=== PATIENT | male | born 1940 | race Caucasian/White ===

== ENCOUNTER → 2017-10-31 13:20 | Outpatient (CLI) | payer MEDICARE, SELFPAY ==
--- NOTE | 2017-10-31 13:23 | DI.REPORT_ITS ---
SYMPTOMS/DIAGNOSIS: FEVER, R50.9; EXERTIONAL SHORTNESS OF BREATH, R06.09 CHEST X-RAY, PA AND LATERAL: Comparison is 10/16/17. The heart size and pulmonary vasculature are stable and within normal limits. There is unchanged scarring in the left lung base. No pulmonary infiltrates, effusions or pneumothoraces are identified. Mild degenerative changes are seen in the spine. IMPRESSION: No acute pulmonary process.
== END ==
PROVIDERS: PCP Internal Medicine; Visit Provider Nurse Practitioner Family
DX: R06.09 Other forms of dyspnea (principal); R50.9 Fever, unspecified
CPT/HCPCS: 71046

== ENCOUNTER → 2018-02-13 08:45 | Outpatient (BNVA) | payer MEDICARE, SELFPAY | PROVIDERS: PCP Internal Medicine; Visit Provider Nurse Practitioner Gerontology | DX: N21.0 Calculus in bladder (principal) | CPT/HCPCS: 81003; 99204; 99215 ==

== ENCOUNTER → 2018-03-11 12:50 | Outpatient (BNVA) | payer MEDICARE, SELFPAY | PROVIDERS: PCP Internal Medicine; Referring Provider Internal Medicine; Visit Provider Surgery | DX: Z12.11 Encounter for screening for malignant neoplasm of colon (principal); Z86.010 Personal history of colon polyps ==

== ENCOUNTER 2018-04-17 09:52 | Day surgery (SDC) | payer MEDICARE, SELFPAY ==
[2018-04-17 10:07] VITALS: BP 152/80; PULSE 70; RESP 18; TEMP 35.5; O2SAT 96
[2018-04-17] MEDS: Lactated Ringers 1,000 ML 30 ML IV (10:33)
[2018-04-17 10:43] LABS: INR 1.1 (0.9-1.1); Prothrombin Time 10.5 sec (9.3-11.0)
--- NOTE | 2018-04-17 13:00 | COLE_ITS ---
Date of service: 04/17/18 Time of Service: 13:00 Operative Note DATE OF PROCEDURE: 04/17/18 PRE-OP DIAGNOSIS: screening colonoscopy POST-OP DIAGNOSIS: same PROCEDURE: colonoscopy SURGEON: Eric Perdomo III ANESTHESIA: MAC PATHOLOGY: none sent COMPLICATIONS: None Patient was transported to: PACU Patient's condition: stable Indications: screening colonoscopy Procedure Description: After informed consent was obtained the patient was taken to the procedure room and placed in a left decubitous position. Monitors were applied and a time out was done. The patients name, date of , procedure, allergies to medications and metal in their body was reviewed. The patient was then sedated. Once sedated and comfortable a rectal exam was done. External exam was normal. Internal exam revealed a normal sphincter tone and no palpable masses. The prostate normal. The scope was then introduced and retrofelexed. NO internal hemorrhoids were identified. The scope was then advanced to the cecum with difficulty. Patient has severe diverticulum of the sigmoid and small amounts of diverticulum throughout the remainder of his colon consistent with gonzalez diverticulitis. The TI and appendiceal orifice were identified. The prep was adequate. The scope was then slowly retracted over 6 minutes back into the rectum. NO Polyps were removed. The scope was removed and the patient was woken up and taken back to Same day surgery in stable condition. The patient tolerated the procedure well and there were no immediate complications. Follow up: The patient should follow up in 10 years unless they develop changes in bowel habits or other new gastrointestinal complaints.
--- NOTE | 2018-04-17 13:16 | W.PM.DSUDISC ---
Discharge Plan Disposition Patient Disposition: HOME Condition: Stable Discharge Details Reason For Visit: screening colonoscopy Attending Provider: Eric Perdomo III Primary Care Provider: Tyree Chaudhry Home Meds and New Rx's Prescriptions: Continued Flovent Diskus 50 MCG blister with device 200 mcg Inhalation BID RF: 0 acetaminophen [Mapap Extra Strength] 500 MG tablet 500 mg PO PRN RF: 0 warfarin [Coumadin] 5 MG tablet 6 mg PO QPM RF: 0 calcium carbonate [Calcium 500] 500 mg calcium (1,250 mg) Tablet 500 mg PO PRN PRNRF: 0 polyethylene glycol 3350 17 gram/dose Powder 255 g PO NOW RF: 0 bisacodyl 5 mg Tablet 10 mg PO NOW RF: 0 Discharge Instructions Stand Alone Forms: Colonoscopy Post Instructions, Chris Ngo (DSU) Activity:: Activity as Tolerated Diet:: As Tolerated Discharge Orders Discharge Orders: Discharge Order (Routine); Ordered 04/17/18 Ordered By: Eric Perdomo III DS: Diagnosis Discharge Diagnosis (1) Colonoscopy planned: Status: Acute
[2018-04-17 13:25] VITALS: BP 141/76; PULSE 64; RESP 16; TEMP 36; O2SAT 95
== END 2018-04-17 13:55 | disposition home or self-care (01) ==
PROVIDERS: Surgery; PCP Internal Medicine; Visit Provider Surgery
PROC: 0DJD8ZZ Inspection of Lower Intestinal Tract, Via Natural or Artificial Opening Endoscopic (ICD-10-PCS; CPT 45378; principal; 2018-04-17 11:30)
DX: Z12.11 Encounter for screening for malignant neoplasm of colon (principal); Z86.010 Personal history of colon polyps; K57.30 Diverticulosis of large intestine without perforation or abscess without bleeding; G47.33 Obstructive sleep apnea (adult) (pediatric)
CPT/HCPCS: G0105; 85610; J2250; J3010

== ENCOUNTER → 2018-06-03 14:35 | Outpatient (BNVA) | payer MEDICARE, SELFPAY | PROVIDERS: PCP Internal Medicine; Visit Provider Nurse Practitioner Gerontology | DX: N21.0 Calculus in bladder (principal) | CPT/HCPCS: 99213 ==

== ENCOUNTER 2018-06-10 09:08 | Day surgery (SDC) | payer MEDICARE, SELFPAY ==
[2018-06-10 09:28] VITALS: BP 157/88; PULSE 69; RESP 16; TEMP 36.6; O2SAT 95
[2018-06-10] MEDS: Lactated Ringers 1,000 ML 80 ML IV (09:42)
[2018-06-10 10:53] LABS: INR 1.1 (0.9-1.1); Prothrombin Time 10.9 sec (9.3-11.0)
[2018-06-10] MEDS: Lidocaine 2% Jelly 6 ML SYR (11:16)
[2018-06-10 11:45] VITALS: BP 166/95; PULSE 88; RESP 12; TEMP 36.7; O2SAT 94
[2018-06-10 11:50] VITALS: BP 163/83; PULSE 84; RESP 15; TEMP 36.7; O2SAT 93
--- NOTE | 2018-06-10 11:54 | PDOC.DSDIS_ITS ---
Discharge Plan Disposition Patient Disposition: HOME Condition: Stable Discharge Details Reason For Visit: bladder stone Attending Provider: Trey Andrade Primary Care Provider: Tyree Chaudhry Home Meds and New Rx's Prescriptions: No Action Flovent Diskus 50 MCG blister with device 200 mcg Inhalation BID PRNRF: 0 acetaminophen [Mapap Extra Strength] 500 MG tablet 500 mg PO PRN RF: 0 warfarin [Coumadin] 5 MG tablet 6 mg PO QPM RF: 0 calcium carbonate [Calcium 500] 500 mg calcium (1,250 mg) Tablet 500 mg PO PRN PRNRF: 0 Discharge Instructions Additional Instructions: Duarte to leg bag F/U 2 to 3 days for duarte removal OK to restart Coumadin on 06/11/17 F/U appt to discuss stone analysis when pt gets back from [place] Activity:: Activity as Tolerated Diet:: As Tolerated Discharge Orders Discharge Orders: Discharge Order (Routine); Ordered 06/10/18 Ordered By: Trey Andrade DS: Diagnosis Discharge Diagnosis (1) Bladder stone: Status: Acute
[2018-06-10 11:55] VITALS: BP 149/83; PULSE 84; RESP 14; TEMP 36.7; O2SAT 96
[2018-06-10 12:10] VITALS: BP 139/60; PULSE 81; RESP 13; TEMP 36.6; O2SAT 94
[2018-06-10] MEDS: traMADol 50 MG TAB PO (12:37)
[2018-06-10 13:11] VITALS: BP 133/73; PULSE 72; RESP 16; TEMP 36.4; O2SAT 94
--- NOTE | 2018-06-10 15:36 | ROE_ITS ---
DATE OF OPERATION: June 10, 2018 PREOPERATIVE DIAGNOSIS: Bladder stone. POSTOPERATIVE DIAGNOSIS: Bladder stone. PROCEDURE: Cystoscopy, Holmium laser of bladder stone with evacuation of stone fragments. SURGEON: Trey Andrade M.D. ANESTHESIA: General. COMPLICATIONS: None. ESTIMATED BLOOD LOSS: <100 cc HISTORY: This is a 78-year-old gentleman who was evaluated for abdominal pain. Initially it was fel t he had a kidney stone but he was actually found to have cholecystitis instead. He did have inciden kamryn finding of a bladder stone. He presents now for stone treatment. OPERATIVE REPORT: The patient was brought to the Operating Room on 06/10/18. He was given a dose of preoperative IV antibiotics. After successful induction of general anesthesia, he was placed in the dorsal lithotomy position. His genitalia was prepped and draped. Two percent xylocaine jelly was in stilled into the urethra. A 22 Scottish rigid cystoscope was passed through the urethra into the bladder. The urethra and bladde r were inspected with the 30-degree lens. The pendulous, bulbous, and membranous urethras all appeared normal. The prostatic urethra showed la teral lobe enlargement and a fairly prominent bladder neck. Just below the bladder neck, a spiculated bladder stone was seen. No additional stones were identifi ed. The stone was treated with a 1000 micron Holmium laser fiber. We used a power setting of 800 an d a rate of 8. I was able to fragment the stone and evacuate the stone fragments using a Van syri nge. The larger stone fragments were grasped with an alligator forceps and removed. All stone fragments were sent to Pathology for permanent section. The cystoscope was reintroduced. The bladder mucosa appeared fairly good but there was bleeding from the prostatic mucosa. We elected to place a Rush catheter temporarily. We left a 16 Scottish Rush. We passed it through the urethra into the bladder and inflated the balloon with 10 cc of sterile water. The catheter was hooked to [facility] drainage. There was some leakage of blood around the catheter as would be expected from his b leeding site. cc: Tyree Chaudhry M.D.
== END 2018-06-10 14:21 | disposition home or self-care (01) ==
PROVIDERS: PCP Internal Medicine; Visit Provider Urology
PROC: (CPT 52317; principal; 2018-06-10 10:30)
DX: N21.0 Calculus in bladder (principal); G47.33 Obstructive sleep apnea (adult) (pediatric); Z79.01 Long term (current) use of anticoagulants; Z87.442 Personal history of urinary calculi; N40.0 Benign prostatic hyperplasia without lower urinary tract symptoms
CPT/HCPCS: 52317; 36415; 82365; 85610; J0690

== ENCOUNTER → 2018-06-13 08:56 | Outpatient (BNVA) | payer MEDICARE, SELFPAY | PROVIDERS: PCP Internal Medicine; Visit Provider Nurse Practitioner Gerontology | DX: N21.0 Calculus in bladder (principal) | CPT/HCPCS: 99212; 99213 ==

== ENCOUNTER → 2018-07-05 08:29 | Outpatient (BNVA) | payer MEDICARE, SELFPAY | PROVIDERS: PCP Internal Medicine; Visit Provider Urology | DX: N21.0 Calculus in bladder (principal); R35.0 Frequency of micturition | CPT/HCPCS: 51798; 99213 ==

== ENCOUNTER 2018-08-28 14:10 | Outpatient (REF) | payer MEDICARE, SELFPAY ==
[2018-08-28 22:17] LABS: Anion Gap 8.5 mmol/L (3-11); BUN 17 mg/dL (7-18); CO2 25.5 mmol/L (21.0-32.0); CREATININE 0.98 mg/dL (0.70-1.30); Calcium 8.5 mg/dL (8.5-10.1); Chloride 105 mmol/L (98-107); Glucose 117 mg/dL (70-100); NT-proBNP 66 pg/mL; Potassium 4.5 mmol/L (3.5-5.1); Sodium 139 mmol/L (136-145)
[2018-08-28 22:35] LABS: Abs Immature Grans 0.02 k/cumm (0.0-0.09); Absolute Basophil Count 0.06 k/cumm (0.0-0.2); Absolute Eosinophil Count 0.04 k/cumm (0.0-0.7); Absolute Lymphocyte Count 1.37 k/cumm (1.2-3.4); Absolute Monocyte Count 0.64 k/cumm (0.11-0.7); Absolute Neutrophil Count 4.74 k/cumm (1.2-6.7); Basophils % 0.9; Eosinophils % 0.6; HCT 44.6 % (40.0-50.0); HGB 14.3 g/dL (13.5-17.5); Immature Grans % 0.3; Lymphocytes % 19.9; Mean Corp. HGB Concentration 32.1 g/dL (32.0-36.0); Mean Corpuscular Hemoglobin 26.9 pg (27.0-33.0); Mean Corpuscular Volume 83.8 fL (80-95); Mean Platelet Volume 11.1 fL (8.0-11.0); Monocytes % 9.3; Platelet Count 331 x1000/uL (130-400); RBC 5.32 m/cumm (4.50-6.00); RBC Distribution Width 16.8 % (11.8-14.1); White Blood Cell Count 6.87 k/cumm (4.4-10.8)
== END 2018-08-28 14:30 ==
LOC: NCHCN 14:10
PROVIDERS: PCP Internal Medicine; Visit Provider Specialist/Technologist Athletic Trainer
DX: R06.02 Shortness of breath (principal)
CPT/HCPCS: 80048; 83880; 85025

== ENCOUNTER 2018-12-16 19:59 | Emergency (ER) | payer MEDICARE, SELFPAY ==
[2018-12-16 20:18] VITALS: BP 185/81; PULSE 73; RESP 16; TEMP 36.8; O2SAT 94
--- NOTE | 2018-12-16 20:57 | DI.RAD_ITS ---
EXAM: XR KNEE RT 4V AP,LAT,JF,PAT CLINICAL HISTORY: FELL, TRAUMA TECHNIQUE: 2D digital imaging was performed. COMPARISON: None. FINDINGS: BONES: No acute fracture is present. No bony destructive lesion is seen. JOINTS: The knee is normally aligned. No joint effusion is seen. SOFT TISSUE: Normal. IMPRESSION: Unremarkable radiographs of the right knee.
--- NOTE | 2018-12-16 20:57 | DI.RAD_ITS ---
EXAM: XR HAND RT COMPLETE CLINICAL: FELL, TRAUMA TECHNIQUE: Three views of the wrist and hand were obtained. COMPARISON: XR WRIST RT COMPLETE from 12/16/2018 FINDINGS: There are marked degenerative changes involving the IP joints. There is no evidence of acute fractur e. Carpal alignment appears within normal limits with mild degenerative changes particularly at the grea ter multangular 1st metacarpal joint. There is no evidence of acute fracture. IMPRESSION:
--- NOTE | 2018-12-16 20:57 | DI.CT_ITS ---
EXAM: CT HEAD WO CLINICAL HISTORY: FELL, FRONTAL TRAUMA, ON COUMADIN TECHNIQUE: Noncontrast brain CT was performed. COMPARISON: No exams were available for comparison FINDINGS: There is soft tissue swelling over the right frontal area. No calvarial fracture. Paranasal sinuses and mastoid air cells are clear. Orbital and temporal bone structures appear intact. There is no e vidence of acute intracranial hemorrhage, mass effect or midline shift. There is moderate generalize d cerebral atrophy. IMPRESSION: No evidence of acute intracranial process.
--- NOTE | 2018-12-16 20:59 | ED.GENADUL_ITS ---
Discharge Plan Disposition Patient Disposition: HOME Discharge Details Chief Complaint: Trauma Clinical Impression: Complex laceration of face, Hand laceration, Fall, Right wrist sprain Primary Care Provider: Tyree Chaudhry ED Provider: Anshul Jackson Home Meds and New Rx's Prescriptions: Continued Flovent Diskus 50 MCG blister with device 200 mcg Inhalation BID PRNRF: 0 acetaminophen [Mapap Extra Strength] 500 MG tablet 500 mg PO PRN RF: 0 warfarin [Coumadin] 5 MG tablet 6 mg PO QPM RF: 0 calcium carbonate [Calcium 500] 500 mg calcium (1,250 mg) Tablet 500 mg PO PRN PRNRF: 0 Discharge Instructions Instructions: Laceration (ED), Wrist Sprain (ED), Facial Laceration (ED) Additional Instructions: Keep wounds clean and dry. Keep dressing intact for 48 hours and then remove dressing, reapply antibiotic ointment and reapply sterile dressing daily thereafter. Monitor for signs of infection: redness, swelling, pain, discharge, warmth. Return to the emergency department immediately for any worsening or new concerning symptoms including headache. Return to the emergency department for suture removal in 10 days. Referrals: Tyree Chaudhry MD [Primary Care Provider] - Medical Decision Making 21:05 --78-year-old male on Coumadin here after mechanical trip and fall with head trauma. Consider acute life-threatening intracranial traumatic hemorrhage given anticoagulation, plan to obtain CT of the head. Laceration to the forehead and right hand. Right wrist with ecchymosis and tenderness volar, concern for fracture. Plan to x-ray. Right knee tender anteriorly and medially. Consider fracture. Plan to x-ray. --Tetanus up-to-date 2016. --X-rays interpreted by radiology: No acute osseous abnormalities of the wrist, no acute findings of the left knee, no evidence of fracture dislocation right hand, soft tissue swelling in the fifth finger without foreign body. Evidence of chronic erosive osteoarthritis. CT of the head interpreted by radiology: No acute intracranial process. Right frontal scalp soft tissue swelling and laceration with no underlying fracture or foreign body. HPI General Mode of arrival: ambulatory . Date/Time Provider Initiated Documentation: 12/16/18 20:57 . Limitations to Documentation: no limitations . Information obtained by: patient . HPI Narrative: 78-year-old male with history of DVT, on Coumadin, here after mechanical trip and fall while walking with chief complaint of laceration. Patient notes he fell forward and lacerated his forehead. Laceration was bleeding heavily but has stopped. Laceration is deep. He also notes injury to his right wrist and hand as well as right knee. He denies any injury to his neck or back, chest or abdomen or pelvis. Patient denies loss of consciousness. Related Data Home Medications Medication Instructions Recorded Confirmed acetaminophen [Mapap Extra 500 mg PO PRN 12/29/12 12/16/18 Strength] warfarin [Coumadin] 6 mg PO QPM 10/16/17 12/16/18 Flovent Diskus 200 mcg INHALATION BID PRN disk 11/05/17 12/16/18 calcium carbonate [Calcium 500] 500 mg PO PRN PRN 04/17/18 12/16/18 Allergies Allergy/AdvReac Type Severity Reaction Status Date / Time tree nut [Tree Nut] Allergy Severe Anaphylaxsi Verified 12/16/18 20:25 s General Stated Complaint: Trauma ROSA: 3 Review of Systems Review of Systems ROS Unobtainable: All systems reviewed & are unremarkable except as noted in HPI and below Cardiovascular Cardiovascular: Denies chest pain Gastrointestinal Gastrointestinal: Denies abdominal pain Integumentary/Breasts Skin/Breast: Reports as per HPI [facility] Medical History Adenomatous polyp of colon (Resolved) 12/22/13 colo with Rodrigo Florence, tubular and tubulovillous adenomas, repeat in three years. 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 m utation and factor V Leiden mutation (Chronic) Venous insufficiency (Chronic) Surgical History Cholecystectomy (10/17/17) History of Catherine fundoplication (Resolved) Social History Smoking/Tobacco Use Status: Never Alcohol Intake: never Drug use: Never Substance use type: does not use Household members: spouse Do you feel safe at home: Yes Do you feel safe in your relationship?: Yes Exam Const General: cooperative and no acute distress HENMT Head: no palpable skull fracture, no raccoon eyes and No periorbital ecchymosis Face and sinus: laceration (Right forehead deep irregular horizontal laceration superior to eyebrow) Mouth: oral mucosae normal and moist mucous membranes Throat: posterior oropharynx normal Eyes Conjunctivae: normal conjunctivae Sclera: normal sclerae EOM: EOM intact bilaterally Neck Neck: full ROM, trachea midline, supple and nontender Resp Auscultation: clear to auscultation bilaterally, no rales, no rhonchi and no wheezes Cardio Jugular venous pressure: no JVD Rate: regular rate and not tachycardic Rhythm: regular rhythm GI Palpation: soft, not firm, no guarding, no masses, not rigid and nontender Back/Spine/Pelvis Cervical Spine: cervical ROM normal, No pain with cervical ROM, No cervical spinal tenderness and No step off deformity Thoracic/Lumbar Spine: No thoracic spinal tenderness and No lumbar spinal tenderness Skin Trauma: laceration (Right forehead as noted above, right hand with 1 cm laceration medial palm) Neuro General: alert, awake, oriented x3 and tone normal Extrem General: no edema Right upper extremity: wrist Details: tenderness Location: of the volar wrist, swelling and ecchymosis Right lower extremity: knee Details: tenderness Location: of the patella and of the medial joint line and normal ROM Psych Appearance: grossly normal Mental Status: mental status grossly normal Speech and Movement: speech and movement normal Course Vital Signs Vital signs: Vital Signs Temperature 36.8 C 12/16/18 20:18 Pulse 73 12/16/18 20:18 Respiratory Rate 16 12/16/18 20:18 Blood Pressure 185/81 H 12/16/18 20:18 Pulse Oximetry 94 L 12/16/18 20:18 Temperature 36.8 C 12/16/18 20:18 Pulse 73 12/16/18 20:18 Respiratory Rate 16 12/16/18 20:18 Blood Pressure 185/81 H 12/16/18 20:18 Pulse Oximetry 94 L 12/16/18 20:18 Oxygen Delivery Method Room Air 12/16/18 20:18 Oxygen Flow Rate 0 12/16/18 20:18 Procedures Laceration Laceration 1: Site: face Size (cm): 4 Description: linear and irregular Depth: simple, single layer Local Anesthetic: with Epi Amount of anesthesia used (mL): 2 Pre-repair: wound explored, irrigated extensively and wound margins revised Skin layer closed with: other (prolene) Size (cm): 6-0 Number of sutures: 6 Technique: simple, interrupted (1) and horizontal mattress (5) Laceration 2: Site: hand Side (If applicable): right Size (cm): 1 Description: linear Depth: simple, single layer Local Anesthetic: Lidocaine 1% and with Epi Amount of anesthesia used (mL): 1 Technique: simple, interrupted Subcutaneous layer closed with: other (prolene) Size: 5-0 Number of sutures: 3 Technique: simple, interrupted
--- NOTE | 2018-12-16 21:00 | NUR.NOTE ---
Nursing Note: saline dressings to right hand and right forehead, both sites wrapped with kerlex.
--- NOTE | 2018-12-16 21:31 | DI.VRAD_ITS ---
EXAM: CT Head Without Contrast EXAM DATE/TIME: 12/16/2018 9:00 PM CLINICAL HISTORY: 78 years old, male; Injury or trauma; Initial encounter; Blunt trauma (contusions or hematomas); Patient HX: Fall, frontal trauma; On coumadin TECHNIQUE: Imaging protocol: Computed tomography of the head without contrast. COMPARISON: No relevant prior studies available. FINDINGS: Brain: Mild generalized atrophy with minimal periventricular white matter ischemic changes consistent with the patient's advanced age. No extra-axial fluid collections. No evidence of acute intracranial hemorrhage. Shea-white differentiation is well maintained. No evidence of acute or subacute intracranial ischemia/infarct. No intracranial mass lesions. Midline shift: No midline shift or herniation. Ventricles: Ventricles normal. Bones/joints: The calvarium and visualized facial bones are intact. Sinuses: Visualized paranasal sinuses are clear. Mastoid air cells: Visualized mastoid air cells are clear. Orbits: Orbital contents demonstrate no evidence of acute abnormality. Soft tissues: Right frontal scalp soft tissue swelling and laceration, with no underlying fracture or foreign body. Vasculature: Moderate atherosclerotic calcific plaque is identified in the visualized distal ICA segments . No asymmetric vascular hyperdensities are identified. Other findings: The IACs are grossly normal. The sella is grossly normal. IMPRESSION: 1. No acute intracranial process. 2. Right frontal scalp soft tissue swelling and laceration, with no underlying fracture or foreign body. Dictated and Authenticated by: Brandon Messina MD. Ordering:ZAHRAA Landers MD
--- NOTE | 2018-12-16 21:39 | DI.VRAD_ITS ---
EXAM: XR Right Hand EXAM DATE/TIME: 12/16/2018 9:00 PM CLINICAL HISTORY: 78 years old, male; Injury or trauma; Initial encounter; Laceration; Right; Injury date: 12/16/18; Injury details: Fall with hand pain mostly 5th digit TECHNIQUE: Imaging protocol: XR Right hand. Views: 3 or more views. COMPARISON: No relevant prior studies available. FINDINGS: Bones/joints: No fractures. Distal radioulnar alignment is normal. No blastic or lytic lesions. No periostitis or osteolysis. Articular erosive changes in the right second and fifth DIP joints consistent with erosive osteoarthritis. Lesser joint space narrowing erosive changes in the thumb interphalangeal joint. Soft tissues: Soft tissue swelling in the right fifth finger. No radiopaque foreign body. Other findings: Carpal relationships are normal. IMPRESSION: 1. No evidence of fracture or dislocation. 2. Soft tissue swelling in the fifth finger without foreign body. 3. Evidence of chronic erosive osteoarthritis which is most pronounced in the DIP joints of the second and fifth finger. Dictated and Authenticated by: Brandon Messina MD. Ordering:ZAHRAA Landers MD
--- NOTE | 2018-12-16 21:44 | DI.VRAD_ITS ---
Addendum created by Brandon Messina MD on 12/16/2018 10:24:23 PM EDT Addendum: The 3 initial images are actually images of the right knee and are labeled as right knee although the exam was ordered as a left knee and this ordering information propagated into the header of the original report. A patellar sunrise view was added to the exam after the initial dictation. Patellofemoral alignment is normal. There is some slight lateral marginal spurring at the patellofemoral joint. No patellar fracture is evident. Some minimal prepatellar calcification over the lower pole of the patella is seen on the lateral view which has a rounded configuration favoring chronic posttraumatic or degenerative calcification. Mild prepatellar soft tissue swelling noted. Initial report created on 12/16/2018 9:44:20 PM EDT EXAM: XR Left Knee EXAM DATE/TIME: 12/16/2018 9:00 PM CLINICAL HISTORY: 78 years old, male; Injury or trauma; Initial encounter; Blunt trauma; Right; Injury date: 12/16/18; Injury details: Fall with knee pain; Patient HX: Anterior medial pain after fall TECHNIQUE: Imaging protocol: XR Left knee. Views: 4 or more views. COMPARISON: No relevant prior studies available. FINDINGS: Bones/joints: No fracture. Normal alignment. No blastic or lytic lesions. No periostitis or osteolysis. No significant joint effusion is present. Joint spaces are well-maintained. Soft tissues: No gross soft tissue abnormalities. No foreign bodies. IMPRESSION: No acute findings. Dictated and Authenticated by: Brandon Messina MD. Ordering:ZAHRAA Landers MD
--- NOTE | 2018-12-16 21:45 | DI.VRAD_ITS ---
EXAM: XR Right Wrist EXAM DATE/TIME: 12/16/2018 9:00 PM CLINICAL HISTORY: 78 years old, male; Injury or trauma; Initial encounter; Blunt trauma (contusions or hematomas; Wrist; Right; Injury date: 12/16/18; Patient HX: Pain after fall TECHNIQUE: Imaging protocol: XR Right wrist. Views: 3 or more views. COMPARISON: CR XR hand RT complete 12/16/2018 9:21 PM FINDINGS: Bones/joints: No fractures are identified. Distal radioulnar alignment is normal. No blastic or lytic lesions. No periostitis or osteolysis. Soft tissues: No gross erosive changes. Question mild soft tissue swelling along the dorsal and volar wrist. No radiopaque foreign bodies. Mild vascular calcification. Other findings: Carpal relationships are normal. IMPRESSION: 1. No acute osseous abnormalities. 2. Mild soft tissue swelling. Dictated and Authenticated by: Brandon Messina MD. Ordering:ZAHRAA Landers MD
[2018-12-16 22:05] LABS: INR 2.4 (0.9-1.1); Prothrombin Time 24.2 sec (9.3-11.0)
[2018-12-16] MEDS: Acetaminophen 325 MG TAB 650 MG PO (22:23)
[2018-12-16] MEDS: Lidocaine/Epinephri/Tetracaine Topical Gel 3 ML TP (22:23)
[2018-12-16 23:29] VITALS: BP 154/68; PULSE 72; RESP 16; O2SAT 96
[2018-12-16 23:54] VITALS: BP 154/68; PULSE 72; RESP 16; O2SAT 96
== END 2018-12-16 23:50 | disposition home or self-care (01) ==
PROVIDERS: Emergency Provider Student in an Organized Health Care Education/Training Program; PCP Internal Medicine
DX: S01.81XA Laceration without foreign body of other part of head, initial encounter (principal); S61.411A Laceration without foreign body of right hand, initial encounter; M25.531 Pain in right wrist; M25.561 Pain in right knee; W18.30XA Fall on same level, unspecified, initial encounter; Z79.01 Long term (current) use of anticoagulants; D68.51 Activated protein C resistance
CPT/HCPCS: 12001; 12013; 36415; 70450; 73110; 73130; 73564; 85610; L3908

== ENCOUNTER 2018-12-27 09:03 | Emergency (ER) | payer MEDICARE, SELFPAY ==
[2018-12-27 09:08] VITALS: BP 147/77; PULSE 68; RESP 16; TEMP 37.2; O2SAT 98
--- NOTE | 2018-12-27 09:25 | W.ED.GENAD ---
Discharge Plan Disposition Patient Disposition: HOME Condition: Improving Discharge Details Chief Complaint: SutureRem Clinical Impression: Visit for suture removal Primary Care Provider: Tyree Chaudhry ED Provider: Rome Marsh Home Meds and New Rx's Prescriptions: Continued Flovent Diskus 50 MCG blister with device 200 mcg Inhalation BID PRNRF: 0 acetaminophen [Mapap Extra Strength] 500 MG tablet 500 mg PO PRN RF: 0 warfarin [Coumadin] 5 MG tablet 6 mg PO QPM RF: 0 calcium carbonate [Calcium 500] 500 mg calcium (1,250 mg) Tablet 500 mg PO PRN PRNRF: 0 Discharge Instructions Additional Instructions: Resume normal routine and activities. Return for any acute concern Medical Decision Making 78-year-old male presents for suture removal. He has healed lacerations right supraorbital and right hand. Sutures removed without difficulty. Stable for discharge to home. HPI General Mode of arrival: ambulatory. Date/Time Provider Initiated Documentation: 12/27/18 09:15. Limitations to Documentation: no limitations. Information obtained by: patient. History of Present Illness 78 year old M presents to the emergency department with the chief complaint of Right supraorbital and right hand suture removal, Patient notes no other symptoms.. Patient did receive the following treatments prior to arrival, none Related Data Home Medications Medication Instructions Recorded Confirmed acetaminophen [Mapap Extra 500 mg PO PRN 12/29/12 12/27/18 Strength] warfarin [Coumadin] 6 mg PO QPM 10/16/17 12/27/18 Flovent Diskus 200 mcg INHALATION BID PRN disk 11/05/17 12/27/18 calcium carbonate [Calcium 500] 500 mg PO PRN PRN 04/17/18 12/27/18 Allergies Allergy/AdvReac Type Severity Reaction Status Date / Time tree nut [Tree Nut] Allergy Severe Anaphylaxsi Verified 12/16/18 20:25 s General Stated Complaint: SutureRem ROSA: 5 Review of Systems Review of Systems Narrative: No fever or chills, no discharge [facility] Medical History Adenomatous polyp of colon (Resolved) 12/22/13 colo with Rodrigo Florence, tubular and tubulovillous adenomas, repeat in three years. 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 Pleasant, well groomed, interactive. HEAD: Normocephalic, atraumatic, right supraorbital laceration healed with sutures intact. ENT: Mucous membranes moist, oropharynx unremarkable, External ear exam unremarkable EYES: PERRL, EOMI EXT: Full ROM, no edema, no rash. Right palm with hypothenar healing laceration, 1 suture Neuro: Grossly normal neurologic exam, conversant, interactive. Psych: Speech fluent, thoughts congruent, affect normal Course Vital Signs Vital signs: Vital Signs Temperature 37.2 C 12/27/18 09:08 Pulse 68 12/27/18 09:08 Respiratory Rate 16 12/27/18 09:08 Blood Pressure 147/77 H 12/27/18 09:08 Pulse Oximetry 98 12/27/18 09:08 Temperature 37.2 C 12/27/18 09:08 Temperature Source Skin 12/27/18 09:08 Pulse 68 12/27/18 09:08 Respiratory Rate 16 12/27/18 09:08 Respiratory Effort 12/27/18 09:19 Blood Pressure 147/77 H 12/27/18 09:08 Blood Pressure Position Sitting 12/27/18 09:08 Pulse Oximetry 98 12/27/18 09:08 Oxygen Delivery Method Room Air 12/27/18 09:08 Oxygen Flow Rate 0 12/27/18 09:08 Pain Level 0 12/27/18 09:08
== END 2018-12-27 10:00 | disposition home or self-care (01) ==
PROVIDERS: Emergency Provider Emergency Medicine; PCP Internal Medicine
DX: S01.81XD Laceration without foreign body of other part of head, subsequent encounter (principal); S61.411D Laceration without foreign body of right hand, subsequent encounter; Z48.02 Encounter for removal of sutures

== ENCOUNTER 2019-09-29 13:57 | Outpatient (CLI) | payer MEDICARE, SELFPAY ==
--- NOTE | 2019-09-29 13:54 | DI.RAD_ITS ---
EXAM: XR KNEE RT 3V AP,LAT,JF CLINICAL HISTORY: R knee pain. TECHNIQUE: 2D digital imaging was performed. COMPARISON: CR,XR XR KNEE RT 4V AP,LAT,JF,PAT from 12/16/2018 FINDINGS: BONES: No acute fracture is present. No bony destructive lesion is seen. JOINTS: The knee is normally aligned. No joint effusion is seen. SOFT TISSUE: Atherosclerosis. IMPRESSION: Unremarkable radiographs of the right knee. DATA REPOSITORY: RADIATION DOSE DELIVERED:
== END 2019-09-29 14:17 ==
PROVIDERS: PCP Internal Medicine; Referring Provider Internal Medicine; Visit Provider Physician Assistant
DX: M25.561 Pain in right knee (principal); M23.91 Unspecified internal derangement of right knee
CPT/HCPCS: 20610; 73562; 99203; 99214; J1040

== ENCOUNTER 2020-05-14 20:56 | Outpatient (REF) | payer MEDICARE, SELFPAY ==
[2020-05-14 21:20] LABS: Anion Gap 10.2 mmol/L (3-11); BUN 19 mg/dL (7-18); CO2 25.8 mmol/L (21.0-32.0); CREATININE 1.2 mg/dL (0.70-1.30); Chloride 106 mmol/L (98-107); Estimated GFR 58.11 (mL/min/1.73m2); Glucose 114 mg/dL (74-106); Potassium 4.3 mmol/L (3.5-5.1); Sodium 142 mmol/L (136-145)
[2020-05-17 09:19] LABS: PSA, Screening 2.6 ng/mL (0.0-6.5)
== END 2020-05-14 20:57 | disposition home or self-care (01) ==
LOC: NCHCN 20:56
PROVIDERS: PCP Internal Medicine; Visit Provider Internal Medicine
DX: R35.0 Frequency of micturition (principal)
CPT/HCPCS: 80048; 84153

== ENCOUNTER 2020-05-20 01:00 | Outpatient (CLI) | payer MEDICARE, SELFPAY ==
--- NOTE | 2020-05-20 | DI.US_ITS ---
EXAM: US RENAL CLINICAL HISTORY: URINARY FREQUENCY,R35.0 TECHNIQUE: Ultrasound of both kidneys performed using standard protocol. COMPARISON: No exams were available for comparison FINDINGS: RIGHT KIDNEY: Measures 12 cm in length. No cysts evident. Normal cortical thickness and corticomedullary differenti ation .No solid masses No intrarenal calculi nor hydronephrosis. LEFT KIDNEY: Measures 13 cm in length. There is a small exophytic cyst off the superior pole which measures 10 x 7 millimeters. Normal cortical thickness and corticomedullary differentiaion. No solids masses. No intrarenal calculi nor hydonephrosis. URINARY BLADDER: Prevoid volume is 51 cc Postvoid volume is 51 cc No evidence of bladder mass nor diverticuli evident on these images. However, there is a hyperechoic density in the dependent aspect of bladder which may be a calculus in the dependent aspect of the paul men. Ureterovesical jets: These were not identified IMPRESSION: 1. No significant ultrasound findings in the kidneys. There is a small simple exophytic cyst off th e superior pole the left kidney. No solid renal masses evident. No hydronephrosis nor significant t hinning of the cortical mantle on either side and both kidneys exhibit normal size, particularly for this advanced age group. 2. Pre and postvoid urine bladder volumes are both 51 cc. Difficult to determine for presence of bl adder masses when the bladder only contains 51 cc. However, there is a subtle suggestion of a possib le small calculus in the dependent lumen of the bladder. The prostate gland does not appear to have been imaged on this study. DATA REPOSITORY:
== END 2020-05-20 01:01 ==
LOC: DI 01:01
PROVIDERS: PCP Internal Medicine; Visit Provider Internal Medicine
DX: R35.0 Frequency of micturition (principal); N28.1 Cyst of kidney, acquired
CPT/HCPCS: 76770

== ENCOUNTER 2020-11-10 15:39 | Outpatient (REF) | payer MEDICARE, SELFPAY ==
[2020-11-10 22:07] LABS: Abs Immature Grans 0.02 10^3/uL (0.0-0.06); Absolute Basophil Count 0.09 10^3/uL (0.0-0.2); Absolute Eosinophil Count 0.05 10^3/uL (0.0-0.7); Absolute Lymphocyte Count 1.48 10^3/uL (1.2-3.4); Absolute Neutrophil Count 4.42 10^3/uL (1.2-6.7); Basophils % 1.3; Eosinophils % 0.7; HCT 48.8 % (40.0-50.0); HGB 15.8 g/dL (13.5-17.5); Immature Grans % 0.3; Lymphocytes % 21.9; MCH 28.7 pg (27.0-33.0); MCHC 32.4 % (32.0-36.0); MCV 88.6 fL (80-95); MPV 10.5 fL (8.0-11.0); Monocytes % 10.4; Neutrophils % 65.4; Nucleated RBC 0 %; Platelet Count 275 10^3/uL (130-400); RBC 5.51 10^6/uL (4.36-5.78); RDW 14.6 % (11.8-14.1); RDW-SD 47.7 fL; WBC 6.76 10^3/uL (4.4-10.8)
[2020-11-10 22:29] LABS: ALT 23 U/L (16-63); AST 13 U/L (15-37); Albumin 3.7 g/dL (3.4-5.0); Alkaline Phosphatase 44 U/L (46-116); Anion Gap 6.7 mmol/L (3-11); BUN 15 mg/dL (7-18); Bilirubin, Total 0.4 mg/dL (0.2-1.0); CO2 27.3 mmol/L (21.0-32.0); Calcium 8.8 mg/dL (8.5-10.1); Chloride 107 mmol/L (98-107); Glucose 188 mg/dL (74-106); Potassium 4.5 mmol/L (3.5-5.1); Sodium 141 mmol/L (136-145); TSH (W/Ref FT4) 1.94 uIU/mL (0.36-3.74); Total Protein 6.7 g/dL (6.4-8.2)
== END 2020-11-10 15:40 | disposition home or self-care (01) ==
LOC: NCHCN 15:39
PROVIDERS: PCP Internal Medicine; Visit Provider Family Medicine
DX: R42 Dizziness and giddiness (principal); J45.30 Mild persistent asthma, uncomplicated; Z79.899 Other long term (current) drug therapy
CPT/HCPCS: 80053; 84443; 85025

== ENCOUNTER 2020-11-24 08:27 | Outpatient (REF) | payer MEDICARE, SELFPAY ==
[2020-11-24 13:57] LABS: Glucose 131 mg/dL (74-106)
== END 2020-11-24 08:28 | disposition home or self-care (01) ==
LOC: NCHCN 08:27
PROVIDERS: PCP Internal Medicine; Visit Provider Internal Medicine
DX: E66.9 Obesity, unspecified (principal); R73.09 Other abnormal glucose
CPT/HCPCS: 82947

== ENCOUNTER 2021-11-14 12:24 | Outpatient (REF) | payer MEDICARE, SELFPAY ==
[2021-11-14 14:39] LABS: HCT 48.8 % (40.0-50.0); HGB 15.9 g/dL (13.5-17.5); MCH 29.2 pg (27.0-33.0); MCHC 32.6 % (32.0-36.0); MCV 90 fL (80-95); MPV 11.1 fL (8.0-11.0); Platelet Count 266 10^3/uL (130-400); RBC 5.45 10^6/uL (4.36-5.78); RDW 14.8 % (11.8-14.1); RDW-SD 48.7 fL; WBC 6.75 10^3/uL (4.4-10.8)
[2021-11-14 14:50] LABS: ALT 26 U/L (16-63); AST 20 U/L (15-37); Albumin 3.8 g/dL (3.4-5.0); Alkaline Phosphatase 44 U/L (46-116); Anion Gap 8.2 mmol/L (3-11); BUN 19 mg/dL (7-18); Bilirubin, Total 0.3 mg/dL (0.2-1.0); CO2 26.8 mmol/L (21.0-32.0); Calcium 8.9 mg/dL (8.5-10.1); Chloride 107 mmol/L (98-107); Glucose 116 mg/dL (74-106); Sodium 142 mmol/L (136-145); Total Protein 7.2 g/dL (6.4-8.2)
== END 2021-11-14 12:25 | disposition home or self-care (01) ==
LOC: NCHCN 12:24
PROVIDERS: PCP Internal Medicine; Visit Provider Family Medicine
DX: Z76.89 Persons encountering health services in other specified circumstances (principal); E66.9 Obesity, unspecified
CPT/HCPCS: 80053; 85027

== ENCOUNTER 2022-06-23 09:03 | Outpatient (CLI) | payer MEDICARE, SELFPAY ==
--- NOTE | 2022-06-23 10:56 | DI.RAD_ITS ---
Exam(s) XR LUMBAR SPINE COMPLETE EXAM: XR LUMBAR SPINE COMPLETE CLINICAL HISTORY: LUMBAR BACK PAIN M54.5. TECHNIQUE: 2D digital imaging was performed of the lumbar spine. Nine images were obtained. AP, la teral, right oblique, left oblique and L5-S1 spot views were obtained. COMPARISON: No exams were available for comparison FINDINGS: BONES: No fracture or destructive lesion. There are endplate osteophytes at all levels of the lumbar spine. Degenerative changes of the facets are seen in the lower lumbar spine. DISKS: There is disc space narrowing at L1-L2 and L2-L3. ALIGNMENT: Lumbar spinal alignment is within normal limits. No spondylolysis or spondylolisthesis. SOFT TISSUE: Atherosclerosis is present. Surgical clips are seen in the right upper quadrant of the abdomen. IMPRESSION: Degenerative changes in the lumbar spine. DATA REPOSITORY: RADIATION DOSE DELIVERED:
== END 2022-06-23 09:23 ==
PROVIDERS: PCP Family Medicine; Visit Provider Family Medicine
DX: M54.59 Other low back pain (principal); M51.36 Other intervertebral disc degeneration, lumbar region; M47.816 Spondylosis without myelopathy or radiculopathy, lumbar region
CPT/HCPCS: 72110

== ENCOUNTER 2022-11-13 12:11 | Outpatient (REF) | payer MEDICARE, SELFPAY ==
[2022-11-13 14:01] LABS: HGB 15.6 g/dL (13.5-17.5); MCH 29.5 pg (27.0-33.0); MCHC 33.2 % (32.0-36.0); MCV 89 fL (80-95); MPV 10.7 fL (8.0-11.0); Platelet Count 323 10^3/uL (130-400); RBC 5.29 10^6/uL (4.36-5.78); RDW 14.6 % (11.8-14.1); RDW-SD 46.8 fL; WBC 5.92 10^3/uL (4.4-10.8)
[2022-11-13 14:21] LABS: ALT 21 U/L (16-63); AST 17 U/L (15-37); Albumin 3.5 g/dL (3.4-5.0); Alkaline Phosphatase 48 U/L (46-116); Anion Gap 10.5 mmol/L (3-11); BUN 18 mg/dL (7-18); Bilirubin, Total 0.5 mg/dL (0.2-1.0); CO2 23.5 mmol/L (21.0-32.0); CREATININE 1.2 mg/dL (0.70-1.30); Calcium 8.8 mg/dL (8.5-10.1); Chloride 106 mmol/L (98-107); Glucose 159 mg/dL (74-106); Potassium 4.3 mmol/L (3.5-5.1); Sodium 140 mmol/L (136-145); Total Protein 6.8 g/dL (6.4-8.2)
== END 2022-11-13 12:12 | disposition home or self-care (01) ==
LOC: NCHCN 12:11
PROVIDERS: PCP Family Medicine; Visit Provider Family Medicine
DX: E11.9 Type 2 diabetes mellitus without complications (principal)
CPT/HCPCS: 80053; 85027

== ENCOUNTER 2023-05-15 15:34 | Outpatient (REF) | payer MEDICARE, SELFPAY ==
[2023-05-15 14:53] LABS: Hemoglobin A1C 6.6 % (<5.7)
[2023-05-15 15:24] LABS: COMMENT (LAB VIEW ONLY) 202.72 mg/dL; Microalb ug/mg Crea 12.9 ug/mg Cr
[2023-05-15 15:44] LABS: ALT 22 U/L (16-63); AST 15 U/L (15-37); Albumin 3.6 g/dL (3.4-5.0); Alkaline Phosphatase 55 U/L (46-116); Anion Gap 10.1 mmol/L (3-11); BUN 17 mg/dL (7-18); Bilirubin, Total 0.4 mg/dL (0.2-1.0); CO2 24.9 mmol/L (21.0-32.0); CREATININE 1.2 mg/dL (0.70-1.30); Calcium 8.6 mg/dL (8.5-10.1); Chloride 107 mmol/L (98-107); Estimated GFR 59.63 (mL/min/1.73m2); Glucose 104 mg/dL (74-106); LDL CHOLESTEROL 137 mg/dL (<100); Potassium 4.3 mmol/L (3.5-5.1); Sodium 142 mmol/L (136-145); Total Protein 6.9 g/dL (6.4-8.2)
[2023-05-15 23:17] LABS: PSA, Screening 4.5 ng/mL (<=6.5)
== END 2023-05-15 15:35 | disposition home or self-care (01) ==
LOC: NCHCN 15:34
PROVIDERS: PCP Family Medicine; Visit Provider Family Medicine
DX: E11.9 Type 2 diabetes mellitus without complications (principal); N40.0 Benign prostatic hyperplasia without lower urinary tract symptoms; Z12.5 Encounter for screening for malignant neoplasm of prostate
CPT/HCPCS: 80053; 83721; 84153; 82043; 82570; 83036

== ENCOUNTER 2024-03-31 17:43 | Outpatient (REF) | payer MEDICARE, SELFPAY | END 2024-03-31 17:44 | disposition home or self-care (01) | LOC: NCHCN 17:43 | PROVIDERS: PCP Family Medicine; Visit Provider Family Medicine | DX: N39.0 Urinary tract infection, site not specified (principal) | CPT/HCPCS: 87086 ==

== ENCOUNTER 2024-05-13 13:50 | Outpatient (REF) | payer MEDICARE, SELFPAY ==
[2024-05-13 21:36] LABS: Abs Immature Grans 0.01 10^3/uL (0.0-0.06); Absolute Eosinophil Count 0.17 10^3/uL (0.0-0.7); Absolute Lymphocyte Count 1.18 10^3/uL (1.2-3.4); Absolute Neutrophil Count 4.31 10^3/uL (1.2-6.7); Basophils % 1.6 %; Eosinophils % 2.7 %; HCT 47.1 % (40.0-50.0); HGB 15.1 g/dL (13.5-17.5); Immature Grans % 0.2 %; Lymphocytes % 18.8 %; MCH 29.2 pg (27.0-33.0); MCHC 32.1 % (32.0-36.0); MCV 91 fL (80-95); MPV 10.4 fL (8.0-11.0); Neutrophils % 68.7 %; Platelet Count 309 10^3/uL (130-400); RBC 5.18 10^6/uL (4.36-5.78); RDW 14.8 % (11.8-14.1); RDW-SD 49.2 fL; WBC 6.27 10^3/uL (4.4-10.8)
[2024-05-13 21:57] LABS: ALT 23 U/L (16-63); AST 15 U/L (15-37); Albumin 3.6 g/dL (3.4-5.0); Alkaline Phosphatase 57 U/L (46-116); Anion Gap 6.6 mmol/L (3-11); BUN 19 mg/dL (7-18); Bilirubin, Total 0.32 mg/dL (0.2-1.0); CO2 27.4 mmol/L (21.0-32.0); CREATININE 1.2 mg/dL (0.70-1.30); Calcium 8.2 mg/dL (8.5-10.1); Chloride 108 mmol/L (98-107); Estimated GFR 59.26 (mL/min/1.73m2); Glucose 196 mg/dL (74-106); Potassium 4.2 mmol/L (3.5-5.1); Sodium 142 mmol/L (136-145); Total Protein 6.5 g/dL (6.4-8.2)
== END 2024-05-13 13:51 | disposition home or self-care (01) ==
LOC: NCHCN 13:50
PROVIDERS: PCP Family Medicine; Visit Provider Family Medicine
DX: E11.9 Type 2 diabetes mellitus without complications (principal)
CPT/HCPCS: 80053; 85025

== ENCOUNTER 2024-05-26 16:06 | Outpatient (REF) | payer MEDICARE, SELFPAY ==
[2024-05-26 22:20] LABS: COMMENT (LAB VIEW ONLY) 137.19 mg/dL; Microalb ug/mg Crea 10.4 ug/mg Cr
== END 2024-05-26 16:07 | disposition home or self-care (01) ==
LOC: NCHCN 16:06
PROVIDERS: PCP Family Medicine; Visit Provider Family Medicine
DX: E11.9 Type 2 diabetes mellitus without complications (principal)
CPT/HCPCS: 82043; 82570

== ENCOUNTER 2024-10-20 18:25 | Emergency (ER) | payer MEDICARE, SELFPAY ==
[2024-10-20] VITALS (70 sets, daily range): BP systolic 119–157; BP diastolic 63–106; PULSE 95–179; RESP 17–28; O2SAT 92–95
--- NOTE | 2024-10-20 18:15 | RT.EKG_ITS ---
APPROVED REPORT Exam: Resting ECG Reason for Exam: Dizzy Patient Location: E HR:169 bpm ECG Measurements Heart Rate 169 AXIS WA 165 P 83 QRSd 93 QRS 62 QT 278 T 22 QTc 466 Conclusion Supraventricular tachycardia...V-rate>(220-age), QRSd<120
--- NOTE | 2024-10-20 18:42 | W.ED.GENAD ---
Discharge Plan Disposition Patient Disposition: Home Condition: Stable Discharge Details Clinical Impression: SVT (supraventricular tachycardia), CAP (community acquired pneumonia) Primary Care Provider: Matthew Jett ED Provider: Solis Hernandez Home Meds and New Rx's Prescriptions: New doxycycline hyclate 100 mg tablet 100 mg PO BID Qty: 14 0RF amoxicillin-pot clavulanate 875-125 mg tablet 1 tab PO BID Qty: 14 0RF Continued fluticasone propionate [Flovent Diskus] 50 MCG blister with device 200 mcg Inhalation BID PRN acetaminophen [Mapap Extra Strength] 500 MG tablet 500 mg PO PRN calcium carbonate [Calcium 500] 500 mg calcium (1,250 mg) Tablet 500 mg PO PRN PRN warfarin 1 mg tablet See Rx Instructions PO DAILY Patient Comments: TAKE ONE TABLET BY MOUTH EVERY DAY DIRECTED (CURRENTLY 6 MG ON SUNDAY,SUNDAY AND SUNDAY AND 5 MG THE REST OF THE WEEK Rx Instructions: TAKE ONE TABLET BY MOUTH EVERY DAY DIRECTED (CURRENTLY 6 MG ON SUNDAY,SUNDAY AND SUNDAY AND 5 MG THE REST OF THE WEEK metformin 500 mg tablet 500 mg PO DAILY Patient Comments: TAKE ONE TABLET BY MOUTH EVERY MORNING tamsulosin 0.4 mg capsule 0.8 mg PO HS Patient Comments: TAKE TWO CAPSULES BY MOUTH EVERY DAY AT BEDTIME Discharge Instructions Additional Instructions: Take the antibiotics as prescribed. You were in SVT when you arrived which made your heart rate elevated and resolved with a one time dose of IV diltiazem. Follow-up with your primary care provider especially if not improving within a week. If you feel significantly more ill, have severe chest pain or difficulty breathing return to the emergency department for reevaluation. HPI General Mode of arrival: ambulatory. Date/Time Provider Initiated Documentation: 10/20/24 18:28. Limitations to Documentation: no limitations. Information obtained by: patient. History of Present Illness 84 year old M presents to the emergency department with the chief complaint of fatigue, dizziness, cough, described as moderate, Patient started experiencing this week(s) (2) and it has been constant. No relieving factors improve symptom(s), No exacerbating factors reported . Patient notes cough, fever/chills and shortness of breath; denies chest pain and nausea/vomiting. Patient did receive the following treatments prior to arrival, none Related Data Home Medications ?Medication ?Instructions ?Recorded ?Confirmed acetaminophen 500 mg tablet (Mapap 500 mg PO PRN 12/29/12 10/20/24 Extra Strength) fluticasone propionate 50 200 mcg inhalation BID PRN 11/05/17 10/20/24 mcg/actuation blister powder for inhalation (Flovent Diskus) calcium carbonate (Calcium 500) 500 mg PO PRN PRN 04/17/18 10/20/24 amoxicillin 875 mg-potassium 1 tab PO BID #14 tabs 10/20/24 clavulanate 125 mg tablet doxycycline hyclate 100 mg tablet 100 mg PO BID #14 tabs 10/20/24 metformin 500 mg tablet 500 mg PO DAILY 10/20/24 10/20/24 tamsulosin 0.4 mg capsule 0.8 mg PO HS 10/20/24 10/20/24 warfarin 1 mg tablet See Rx Instructions PO DAILY 10/20/24 10/20/24 Previous Rx's ?Medication ?Instructions ?Recorded amoxicillin 875 mg-potassium 1 tab PO BID #14 tabs 10/20/24 clavulanate 125 mg tablet doxycycline hyclate 100 mg tablet 100 mg PO BID #14 tabs 10/20/24 Allergies Allergy/AdvReac Type Severity Reaction Status Date / Time tree nut (Tree Nut) Allergy Severe Anaphylaxsi Verified 10/20/24 18:49 s General ROSA: 5 Review of Systems All systems reviewed & are unremarkable except as noted in HPI and below Constitutional Constitutional: Reports chills, Reports fever(s) and Reports weakness Cardiovascular Cardiovascular: Denies chest pain and Reports dyspnea Respiratory Respiratory: Reports cough and Reports dyspnea Gastrointestinal Gastrointestinal: Denies abdominal pain, Denies nausea and Denies vomiting Neurologic Neurologic: Reports weakness Psychiatric Psychiatric: Denies depression Exam Const General: no acute distress Orientation: alert [facility] Head: normal to inspection Ears: external ears normal General nose exam: external nose normal Mouth: moist mucous membranes Eyes General: appearance normal, both eyes and all related structures Neck Neck: normal visual inspection Resp Effort & Inspection: normal respiratory effort and able to speak in complete sentences Auscultation: clear to auscultation bilaterally Cardio Jugular venous pressure: no JVD Rate: tachycardic Skin General skin exam: no rashes or lesions noted Neuro General: patient alert and patient oriented x3 Extrem General: normal to inspection Psych Mental Status: mental status grossly normal Medical Decision Making 84-year-old male with a history of prior DVTs on warfarin who comes in with 2 weeks of shortness of breath and cough and the today felt dizzy and lightheaded and felt like his pulse was weak so came in for evaluation. He was noted to be tachycardic to the 170s on arrival, is mentating well and denies any chest pain or chest pressure. He says that he was treated with a Z-Etj about a week ago for his symptoms which did not help. He continues to have a cough and shortness of breath. He denies ever having a history of A-fib that he is aware of. He has clear lung sounds, no JVD, no abdominal tenderness. Given his SVT which could be from rapid a flutter I am going to proceed with checking labs including a CBC, CMP, troponins, coagulation study since he is on warfarin, and treat with IV diltiazem and reassess. Will also obtain a chest x-ray for his cough to evaluate for infiltrates Patient converted to a sinus rhythm from SVT after 1 dose of diltiazem. He feels significantly better. Remains hemodynamically stable otherwise. Patient with mild leukocytosis, mild ADELA. proBNP mildly elevated which could be from SVT. 2 negative troponins. X-ray shows question of a small infiltrate in the left lower lobe which fits with his symptoms. Discussed results with him and offered admission for IV antibiotics and monitoring. He has medical decision making capacity and states that he feels significantly better and wants to go home. Given his resolution of SVT, he is not hypoxic and not hypotensive I feel this is reasonable. He was given a dose of ceftriaxone and also doxycycline. I will prescribe him Augmentin and doxycycline. He has follow-up with his PCP already scheduled, return precautions given Differential Diagnosis Differential Diagnosis: A-fib versus flutter, SVT, dehydration, pneumonia Lab Data Lab results reviewed: Yes I reviewed the patient's lab results. ECG Data Attestation: I personally reviewed and interpreted this ECG (s) as follows: Prior ECG tracings: not available for review Interpretation: Supraventricular tachycardia with a rate of 169, WA 165, no STEMI 2nd ekg sinus tachytcardia rate of 103 no stemi Critical Care Time Critical Care Time Critical Care Time: Yes Total Critical Care Time: 45 (minutes) Attestation: Time spent administering IV diltiazem in a patient in SVT requiring frequent reassessments with potential to deteriorate at any time PFSH All Active Problems (Updated 10/20/24 @ 20:46 by Solis Hernandez MD) CAP (community acquired pneumonia) (Acute) SVT (supraventricular tachycardia) (Chronic) Internal derangement of right knee (Acute) Injected: 09/29/2019 Tinnitus, bilateral (Acute) 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) Bladder stone (Acute) Colonoscopy planned (Acute) Personal history of colonic polyps (Acute) Hyperlipidemia (Chronic) Asthma, mild persistent (Chronic) YIFAN (obstructive sleep apnea) (Chronic) Chronic anticoagulation (Chronic) Chronic deep vein thrombosis (DVT) of popliteal vein of right lower extremity (Chronic) Heterozygous factor V Leiden mutation (Chronic) Exertional shortness of breath (Chronic) Obesity (Chronic) Subcutaneous mass (Acute) right forearm Kidney stone (Chronic) Acute gangrenous cholecystitis (Acute) Bladder stone (Acute) Medical History (Updated 10/20/24 @ 20:46 by Solis Hernandez MD) Normal colonoscopy (04/17/18) Normal - no polyps, but with severe diverticulitis of sigmoid colon and small amts throughout colon, Dr Eric Perdomo, repeat in ten years. 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
--- NOTE | 2024-10-20 18:45 | RT.EKG_ITS ---
APPROVED REPORT Exam: Resting ECG Reason for Exam: tachycardia Patient Location: E HR:103 bpm ECG Measurements Heart Rate 103 AXIS CO 152 P 64 QRSd 67 QRS 43 QT 324 T 42 QTc 425 Conclusion Sinus tachycardia...rate> 99
[2024-10-20] MEDS: dilTIAZem 25 MG/5 ML VIAL 20 MG IVP (18:46)
[2024-10-20 18:54] LABS: HCT 46.2 % (40.0-50.0); HGB 15.4 g/dL (13.5-17.5); MCH 29.2 pg (27.0-33.0); MCHC 33.3 % (32.0-36.0); MCV 88 fL (80-95); MPV 10.1 fL (8.0-11.0); Platelet Count 358 10^3/uL (130-400); RBC 5.28 10^6/uL (4.36-5.78); RDW 14.6 % (11.8-14.1); RDW-SD 46.8 fL; WBC 13.00 10^3/uL (4.4-10.8)
--- NOTE | 2024-10-20 19:01 | DI.RAD_ITS ---
Exam(s) XR PORTABLE CHEST AP EXAM: XR PORTABLE CHEST AP CLINICAL HISTORY: cough TECHNIQUE: 2D digital imaging was performed. COMPARISON: CR CHEST 2 VIEWS PA,LAT from 10/31/2017 FINDINGS: LUNGS: Suboptimal pulmonary inflation. There is a focal area of increased density at the left lung base. This could represent atelectasis versus infiltrate. Mass also not exclude the lungs are otherwise clear. No pleural abnormality seen. HEART: Normal size. AORTA: Normal diameter. BONES: Unremarkable for age. Soft tissues: Unremarkable. IMPRESSION: Left basilar atelectasis versus infiltrate.. DATA REPOSITORY: RADIATION DOSE DELIVERED:
[2024-10-20 19:06] LABS: INR 3.3 (0.9-1.1); PTT Activated 56.1 sec (20.6-30.2); Prothrombin Time 30.1 sec (9.1-11.1)
[2024-10-20 19:12] LABS: Abs Immature Grans 0.00 10^3/uL (0.0-0.06); Immature Grans % 0.0 %; RBC Morphology Normal
[2024-10-20 19:17] LABS: ALT 39 U/L (16-63); AST 34 U/L (15-37); Albumin 3.4 g/dL (3.4-5.0); Alkaline Phosphatase 82 U/L (46-116); Anion Gap 15.6 mmol/L (3-11); BUN 21 mg/dL (7-18); Bilirubin, Direct 0.2 mg/dL (0.0-0.2); Bilirubin, Total 0.6 mg/dL (0.2-1.0); CO2 23.4 mmol/L (21.0-32.0); Calcium 8.9 mg/dL (8.5-10.1); Chloride 99 mmol/L (98-107); Estimated GFR 41.96 (mL/min/1.73m2); Glucose 235 mg/dL (74-106); Magnesium 1.9 mg/dL (1.8-2.4); Potassium 4.2 mmol/L (3.5-5.1); Sodium 138 mmol/L (136-145); TSH (W/Ref FT4) 2.51 uIU/mL (0.36-3.74); Total Protein 7.9 g/dL (6.4-8.2); Troponin I 11 ng/L (<or=76)
[2024-10-20 19:18] LABS: NT-proBNP 530 pg/mL (<300)
[2024-10-20] MEDS: Normal Saline 1,000 ML 1000 ML IV (19:27)
--- NOTE | 2024-10-20 19:56 | DI.VRAD_ITS ---
PROCEDURE INFORMATION: Exam: XR Chest Exam date and time: 10/20/2024 7:03 PM Age: 84 years old Clinical indication: Cough TECHNIQUE: Imaging protocol: Radiologic exam of the chest. Views: 1 view. COMPARISON: CR CHEST 2 VIEWS PA,LAT 10/31/2017 1:23 PM FINDINGS: Lungs: Lung volumes are low. Trace airspace opacities are present at the left lung base. Pleural spaces: No pleural effusion or pneumothorax. Heart/Mediastinum: The heart is normal size. Bones/joints: Unremarkable. IMPRESSION: Trace left basilar radiopacities. Although these findings may represent atelectasis or consolidation, underlying pulmonary neoplasm can not be excluded and short interval follow-up is recommended to exclude pulmonary pathology. Dictated and Authenticated by: Ramona Wilson MD. Orderin Mary Ely MD
[2024-10-20 20:04] LABS: Troponin I 22 ng/L (<or=76)
[2024-10-20] MEDS: cefTRIAXone 2 GM/50 ML BAG IVPB (20:24)
[2024-10-20] MEDS: Doxycycline Hyclate 100 MG CAP PO (20:31)
== END 2024-10-20 20:51 | disposition home or self-care (01) ==
LOC: ER 21:15
PROVIDERS: Emergency Provider Emergency Medicine; PCP Family Medicine
DX: J18.9 Pneumonia, unspecified organism (principal); I47.10 Supraventricular tachycardia, unspecified; Z86.718 Personal history of other venous thrombosis and embolism; Z79.01 Long term (current) use of anticoagulants; Z79.84 Long term (current) use of oral hypoglycemic drugs
CPT/HCPCS: 80053; 93005; 96361; 96374; 96375; 99285; 71045; 82248; 83735; 83880; 84443; 84484; 85025; 85610; 85730; 93010; 99284; J0696

== ENCOUNTER 2025-02-17 13:17 | Outpatient (REF) | payer MEDICARE, SELFPAY ==
[2025-02-18 14:01] LABS: PSA, Screening 2.7 ng/mL (<=6.5)
== END 2025-02-17 13:18 | disposition home or self-care (01) ==
LOC: NCHCN 13:17
PROVIDERS: PCP Family Medicine; Visit Provider Family Medicine
DX: Z12.5 Encounter for screening for malignant neoplasm of prostate (principal)
CPT/HCPCS: 84153